=== PATIENT | male | born 1985 | race African-American/Black ===

== ENCOUNTER 2017-03-06 10:59 | Emergency (ER) | payer MEDICARE, OTHER ==
[~2017-03-06] VITALS: Ht 172.7 cm; Wt 90.7 kg
[~2017-03-06 10:59] MED LIST: NO HOME MEDICATIONS
[2017-03-06 11:07] VITALS: BP 116/76
--- NOTE | 2017-03-06 11:32 | PHYS DOC ---
Past Medical History Past Medical History: No Pertinent History Additional Past Medical Histor: BLOOD CLOT IN BRAIN Past Surgical History: Other Additional Past Surgical Histo: craniotomy Alcohol Use: None Drug Use: None Adult General Chief Complaint Chief Complaint: HAND PROBLEM HPI HPI Patient is a 31 year old male who reports to the emergency Department today with complaint of right hand pain secondary to falling while attempting to get up from the floor and striking his hand back onto the floor and a punching manner. Patient is a right-hand dominant. He denies any history of previous injury to his right hand or bone forming disorders. He denies numbness or tingling to his fingers. Review of Systems Review of Systems Constitutional: Denies fever or chills [] Eyes: Denies change in visual acuity, redness, or eye pain [] HENT: Denies nasal congestion or sore throat [] Respiratory: Denies cough or shortness of breath [] Cardiovascular: No additional information not addressed in HPI [] GI: Denies abdominal pain, nausea, vomiting, bloody stools or diarrhea [] : Denies dysuria or hematuria [] Musculoskeletal: Denies back pain or joint pain [] Integument: Denies rash or skin lesions [] Neurologic: Denies headache, focal weakness or sensory changes [] Endocrine: Denies polyuria or polydipsia [] Allergies Allergies Allergies Coded Allergies Type Severity Reaction Last Updated Verified No Known Drug Allergies 11/12/14 No Physical Exam Physical Exam Constitutional: Well developed, well nourished, no acute distress, non-toxic appearance. [] HENT: Normocephalic, atraumatic, bilateral external ears normal, oropharynx moist, no oral exudates, nose normal. [] Eyes: PERRLA, EOMI, conjunctiva normal, no discharge. [] Neck: Normal range of motion, no tenderness, supple, no stridor. [] Cardiovascular:Heart rate regular rhythm, no murmur [] Lungs & Thorax: Bilateral breath sounds clear to auscultation [] Abdomen: Bowel sounds normal, soft, no tenderness, no masses, no pulsatile masses. [] Skin: Warm, dry, no erythema, no rash. [] Back: No tenderness, no CVA tenderness. [] Extremities: Right hand with a scant amount of swelling and tenderness at the fifth metacarpal. There is no palpable instability or crepitus. Patient is able to flex and extend at the PIPJ and DIPJ of fingers 2 through 5. Fingers are neurovascularly intact with capillary refill less than 2 seconds. Patient's right wrist and forearm are normal in appearance and nontender to palpation. Neurologic: Alert and oriented X 3, normal motor function, normal sensory function, no focal deficits noted. [] Psychologic: Affect normal, judgement normal, mood normal. [] Current Patient Data Vital Signs Vital Signs Date Time Temp Pulse Resp B/P Pulse Ox O2 Delivery O2 Flow Rate FiO2 03/06/17 11:07 98.0 50 18 99 Room Air 98.0 EKG EKG [] Radiology/Procedures Radiology/Procedures [facility] [address] [place] [address] IMAGING REPORT Signed PATIENT: TANIA MCCURDY ACCOUNT: [id number] : 1985 LOCATION: ER AGE: 31 SEX: M EXAM STATUS: REG ER ORD. PHYSICIAN: ANKIT JOVEL REASON: pain after fall/punching motion to floor PROCEDURE: HAND RIGHT 3V Three-view right hand radiographs 03/06/2017 Clinical history: Injury to the right hand earlier today with pain. PA, lateral and oblique digital radiographs of the right hand were obtained. An acute comminuted fracture is seen involving the proximal metaphysis of the right fifth metacarpal. The fracture line extends to the carpometacarpal joint. A 8 mm fracture fragment is mildly displaced laterally. No additional fracture is seen. Impression: Acute comminuted fracture of the proximal right fifth metacarpal. 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 Splint was reevaluated by me and found to be in satisfactory position with proper padding. Fingers are neurovascularly intact with capillary refill less than 2 seconds. Patient has no complaints of increased pain or swelling at this time. Dragon Disclaimer Dragon Disclaimer This electronic medical record was generated, in whole or in part, using a voice recognition dictation system. Departure Departure Impression: Primary Impression: Metacarpal bone fracture Disposition: 01 HOME, SELF-CARE Condition: STABLE Referrals: NO PCP (PCP) MANN NEGRON II, MD Patient Instructions: Hand Fracture, Metacarpals, [id number], Splint Care, [id number] Additional Instructions: 1. Review the discharge instructions provided for self-care and reasons to return to the emergency department. 2. Take the medication as prescribed. 3. Call the orthopedic doctor's office listed in the paperwork tomorrow to schedule follow-up appointment. Scripts Hydrocodone/Apap 5-325 ([place] 5-325 Tablet)1 Each Tablet1 Tab PO PRN Q6HRS PRN PAIN #15 TAB Prov:ANKIT JOVEL 03/06/17 ANKIT JOVEL Mar 06, 2017 11:32
--- NOTE | 2017-03-06 11:53 | RAD ---
Three-view right hand radiographs 03/06/2017 Clinical history: Injury to the right hand earlier today with pain. PA, lateral and oblique digital radiographs of the right hand were obtained. An acute comminuted fracture is seen involving the proximal metaphysis of the right fifth metacarpal. The fracture line extends to the carpometacarpal joint. A 8 mm fracture fragment is mildly displaced laterally. No additional fracture is seen. Impression: Acute comminuted fracture of the proximal right fifth metacarpal.
[2017-03-06] MEDS ORDERED: HYDR-971 PO (12:34)
== END 2017-03-06 12:46 | disposition home or self-care (01) ==
LOC: ER 10:59
DX: S62.396A Other fracture of fifth metacarpal bone, right hand, initial encounter for closed fracture (principal); W01.198A Fall on same level from slipping, tripping and stumbling with subsequent striking against other object, initial encounter; Y93.89 Activity, other specified; Y92.89 Other specified places as the place of occurrence of the external cause; Y99.8 Other external cause status
CPT/HCPCS: 29125; 73130; 99284-25